=== PATIENT | male | born 1965 ===

== ENCOUNTER 2018-12-16 09:39 | Day surgery (SDC) | payer OTHER ==
[~2018-12-16] VITALS: Ht 177.8 cm; Wt 105.8 kg
[2018-12-16] MEDS ORDERED: LOSA50 (10:07)
== END 2018-12-16 11:28 | disposition home or self-care (01) ==
LOC: ORSCSDS 09:39
PROVIDERS: Internal Medicine Gastroenterology
PROC: 0DBP8ZX Excision of Rectum, Via Natural or Artificial Opening Endoscopic, Diagnostic (ICD-10-PCS; principal; 2018-12-16 11:00)
DX: Z12.11 Encounter for screening for malignant neoplasm of colon (principal); K62.1 Rectal polyp; K57.30 Diverticulosis of large intestine without perforation or abscess without bleeding; K64.8 Other hemorrhoids; I10 Essential (primary) hypertension; Z79.899 Other long term (current) drug therapy
CPT/HCPCS: 88305; J2704; J7120

== ENCOUNTER 2022-05-19 19:09 | Inpatient (IN) | payer BC ==
[~2022-05-19] VITALS: Ht 172.7 cm; Wt 110.0 kg
[~2022-05-19 19:09] MED LIST changes: -AMOCLA875 PO; -AMOX-CLAV ER 11 EAC1 PO
[2022-05-19 21:46] LABS: BASOPHILS ABSOLUTE AUTO 0.06 K/mm3 (0.00-0.23); BASOPHILS PERCENT AUTO 0 % (0-2); EOSINOPHILS ABSOLUTE AUTO 0.08 K/mm3 (0.00-0.68); EOSINOPHILS PERCENT AUTO 0 % (0-6); Hematocrit 44.2 % (37.0-53.0); Hemoglobin 15.1 g/dL (13.5-17.5); IMMATURE GRAN ABSOLUTE AUTO 0.14 K/mm3 (0.00-0.10); IMMATURE GRAN PERCENT AUTO 1 % (0-1); LYMPHOCYTES ABSOLUTE AUTO 2.09 K/mm3 (0.84-5.20); LYMPHOCYTES PERCENT AUTO 11 % (21-46); MONOCYTES PERCENT AUTO 6 % (4-13); Mean Corpuscular HGB 30.2 pg (26.0-34.0); Mean Corpuscular HGB Conc 34.2 g/dL (31.5-36.5); Mean Corpuscular Volume 88 fL (80-100); Mean Platelet Volume 9.8 fL (9.1-12.4); NEUTROPHILS ABSOLUTE AUTO 15.94 K/mm3 (1.96-9.15); NEUTROPHILS PERCENT AUTO 82 % (41-73); Platelet Count 221 K/mm3 (150-400); RDW Coefficient Variation 13.2 % (11.7-14.2); RDW Standard Deviation 42.7 fL (35.1-46.3); White Blood Cell Count 19.51 K/mm3 (4.00-11.30)
[2022-05-19 22:01] LABS: Albumin, Blood 3.3 g/dL (3.4-5.0); Albumin/Globulin Ratio 0.8 (0.8-1.8); Bilirubin, Total 1.8 mg/dL (0.1-1.0); Bun/Creatinine Ratio 17.7 (12.0-20.0); Calcium, Blood 8.7 mg/dL (8.5-10.1); Creatinine, Blood 0.85 mg/dL (0.60-1.20); Globulin, Blood 4.1 g/dL (2.2-4.0); Potassium, Blood 3.8 mmol/L (3.5-5.5); Total Protein, Blood 7.4 g/dL (6.4-8.2)
[2022-05-20 04:36] LABS: Hematocrit 41.8 % (37.0-53.0); Hemoglobin 14.5 g/dL (13.5-17.5); Mean Corpuscular HGB 30.4 pg (26.0-34.0); Mean Corpuscular HGB Conc 34.7 g/dL (31.5-36.5); Mean Corpuscular Volume 88 fL (80-100); Mean Platelet Volume 9.8 fL (9.1-12.4); Platelet Count 227 K/mm3 (150-400); RDW Standard Deviation 42.5 fL (35.1-46.3); Red Blood Cell Count 4.77 M/mm3 (4.30-5.90); White Blood Cell Count 17.93 K/mm3 (4.00-11.30)
[2022-05-20 04:56] LABS: Bun/Creatinine Ratio 21.2 (12.0-20.0); Calcium, Blood 8.6 mg/dL (8.5-10.1); Creatinine, Blood 0.8 mg/dL (0.60-1.20)
--- NOTE | 2022-05-20 06:56 | NUR ---
SUMMARY ADMIT THIS SHIFT FOR MICROPERF DIVERTIC,PT HAS SURG CX ORDERED.NPO AT THIS TIME.
--- NOTE | 2022-05-20 11:16 | NUR ---
DR VANCE IN TO SEE PT.
--- NOTE | 2022-05-20 17:01 | NUR ---
SUMMARY NO ACUTE CHANGES T/O SHIFT. PT ADVANCED TO CLEAR LIQUIDS TODAY, TOLERATING W/O DIFFICULTY. IV FLUIDS/ABX ADMINISTERED PER ORDERS. PT HAS NOT REQUIRED ANYTHING FOR NAUSEA OR PAIN THIS SHIFT. GETS UP INDEPENDENTLY TO USE RESTROOM. VOIDING TEA COLORED URINE. CALL LIGHT IN REACH.
[2022-05-21 04:55] LABS: BASOPHILS ABSOLUTE AUTO 0.04 K/mm3 (0.00-0.23); BASOPHILS PERCENT AUTO 0 % (0-2); EOSINOPHILS ABSOLUTE AUTO 0.16 K/mm3 (0.00-0.68); EOSINOPHILS PERCENT AUTO 1 % (0-6); Hematocrit 42.2 % (37.0-53.0); Hemoglobin 13.9 g/dL (13.5-17.5); IMMATURE GRAN ABSOLUTE AUTO 0.09 K/mm3 (0.00-0.10); IMMATURE GRAN PERCENT AUTO 1 % (0-1); LYMPHOCYTES ABSOLUTE AUTO 1.77 K/mm3 (0.84-5.20); LYMPHOCYTES PERCENT AUTO 16 % (21-46); MONOCYTES ABSOLUTE AUTO 0.78 K/mm3 (0.16-1.47); MONOCYTES PERCENT AUTO 7 % (4-13); Mean Corpuscular HGB 30.1 pg (26.0-34.0); Mean Corpuscular HGB Conc 32.9 g/dL (31.5-36.5); Mean Corpuscular Volume 91 fL (80-100); Mean Platelet Volume 9.6 fL (9.1-12.4); NEUTROPHILS ABSOLUTE AUTO 8.51 K/mm3 (1.96-9.15); NEUTROPHILS PERCENT AUTO 75 % (41-73); Platelet Count 256 K/mm3 (150-400); RDW Coefficient Variation 13.2 % (11.7-14.2); RDW Standard Deviation 44.4 fL (35.1-46.3); Red Blood Cell Count 4.62 M/mm3 (4.30-5.90); White Blood Cell Count 11.35 K/mm3 (4.00-11.30)
[2022-05-21 05:11] LABS: Calcium, Blood 8.7 mg/dL (8.5-10.1); Creatinine, Blood 0.93 mg/dL (0.60-1.20)
--- NOTE | 2022-05-21 05:24 | NUR ---
SHIFT SUMMARY' PT AOX4. AMBULATES INDEPENDENTLY IN ROOM. PT IS BEING TREATED FOR IV ABX. PAIN MANAGEMENT. TOLEARATING CLEAR LIQ DIET. PT REPORTS NO PAIN. DENIES NAUSEA AND VOMITING. IV ABX OVERNIGHT. IV FLUIDS INFUSING. CALL LIGHT WITHIN REACH. WILL PROVIDE REPORT TO ONCOMING NURSE.
--- NOTE | 2022-05-21 08:05 | NUR ---
A&OX4, DENIES ANY NAUSEA, REPORTS HAVING VERY MINIMAL ABD PAIN, REPORTS TOLERATING CLEAR LIQUIDS WELL, PT OK TO ADVANCE DIET KOFI PER DR. VANCE IF OK WITH SURGERY, MONITOR FOR ANY CHANGES.
[2022-05-21] MEDS ORDERED: AMOX-CLAV ER 11 EAC1 PO (13:12)
--- NOTE | 2022-05-21 14:13 | NUR ---
DC'D HOME, PT STATES TOLERATED LOW FIBER LUNCH WELL, DC INSTRUCTIONS GIVEN, VERBALIZED UNDERSTANDING.
== END 2022-05-21 13:35 | disposition home or self-care (01) | DRG 392 ==
LOC: ER 19:09 → SURS 19:10
PROVIDERS: Student in an Organized Health Care Education/Training Program; ADMIT Internal Medicine
DX: K57.20 Diverticulitis of large intestine with perforation and abscess without bleeding (principal); I10 Essential (primary) hypertension; E78.00 Pure hypercholesterolemia, unspecified; E66.9 Obesity, unspecified; Z79.899 Other long term (current) drug therapy; Z68.35 Body mass index [BMI] 35.0-35.9, adult; Z98.890 Other specified postprocedural states
CPT/HCPCS: 36415; 80048; 80053; 85025; 85027; 96361; 96365; 96366; 96375; 96376; 99284-25; A9270; G0378; J1650; J2405; J2543; J3010; J7030

== ENCOUNTER → 2022-05-19 | Outpatient (CLI) | payer SELFPAY ==
[~2022-05-19] MED LIST: AMOCLA875 PO; AMOX-CLAV ER 11 EAC1 PO; LOSA50
[2022-05-19 17:32] LABS: BASOPHILS ABSOLUTE AUTO 0.06 K/mm3 (0.00-0.23); BASOPHILS PERCENT AUTO 0 % (0-2); EOSINOPHILS ABSOLUTE AUTO 0.02 K/mm3 (0.00-0.68); EOSINOPHILS PERCENT AUTO 0 % (0-6); Hemoglobin 16.4 g/dL (13.5-17.5); IMMATURE GRAN ABSOLUTE AUTO 0.14 K/mm3 (0.00-0.10); IMMATURE GRAN PERCENT AUTO 1 % (0-1); LYMPHOCYTES ABSOLUTE AUTO 2.04 K/mm3 (0.84-5.20); LYMPHOCYTES PERCENT AUTO 9 % (21-46); MONOCYTES ABSOLUTE AUTO 1.38 K/mm3 (0.16-1.47); MONOCYTES PERCENT AUTO 6 % (4-13); Mean Corpuscular HGB 30.7 pg (26.0-34.0); Mean Corpuscular HGB Conc 34.9 g/dL (31.5-36.5); Mean Corpuscular Volume 88 fL (80-100); Mean Platelet Volume 9.5 fL (9.1-12.4); NEUTROPHILS ABSOLUTE AUTO 18.38 K/mm3 (1.96-9.15); NEUTROPHILS PERCENT AUTO 83 % (41-73); Platelet Count 245 K/mm3 (150-400); RDW Coefficient Variation 13.1 % (11.7-14.2); RDW Standard Deviation 42.2 fL (35.1-46.3); Red Blood Cell Count 5.35 M/mm3 (4.30-5.90); White Blood Cell Count 22.02 K/mm3 (4.00-11.30)
[2022-05-19 17:38] LABS: Bun/Creatinine Ratio 15.5 (12.0-20.0); Calcium, Blood 9.3 mg/dL (8.5-10.1); Creatinine, Blood 0.84 mg/dL (0.60-1.20); Potassium, Blood 3.5 mmol/L (3.5-5.5)
== END | disposition home or self-care (01) ==
LOC: LAB SHORT 17:27 → LAB 17:27
PROVIDERS: Physician Assistant Surgical
DX: R10.32 Left lower quadrant pain (principal)
CPT/HCPCS: 80048; 85025

== ENCOUNTER 2022-05-25 16:30 | Inpatient (IN) | payer BC ==
[~2022-05-25] VITALS: Ht 177.8 cm; Wt 104.3 kg
[~2022-05-25 16:30] MED LIST changes: +AMOX-CLAV ER 11 EAC1 PO
[2022-05-25 18:38] LABS: Mean Corpuscular HGB 29.8 pg (26.0-34.0); Mean Corpuscular HGB Conc 33.3 g/dL (31.5-36.5); Mean Corpuscular Volume 89 fL (80-100); Mean Platelet Volume 9.4 fL (9.1-12.4); Platelet Count 402 K/mm3 (150-400); RDW Coefficient Variation 12.7 % (11.7-14.2); RDW Standard Deviation 41.9 fL (35.1-46.3); Red Blood Cell Count 5.04 M/mm3 (4.30-5.90); White Blood Cell Count 23.64 K/mm3 (4.00-11.30)
[2022-05-25 18:46] LABS: Albumin, Blood 3.5 g/dL (3.4-5.0); Albumin/Globulin Ratio 0.8 (0.8-1.8); Bilirubin, Total 0.7 mg/dL (0.1-1.0); Bun/Creatinine Ratio 15.5 (12.0-20.0); Calcium, Blood 9.6 mg/dL (8.5-10.1); Creatinine, Blood 1.03 mg/dL (0.60-1.20); Globulin, Blood 4.4 g/dL (2.2-4.0); Potassium, Blood 3.7 mmol/L (3.5-5.5); Total Protein, Blood 7.9 g/dL (6.4-8.2)
[2022-05-25 19:10] LABS: BAND PERCENT MAN 2 % (0-8); BASOPHILS PERCENT MAN 0 % (0-2); EOSINOPHILS ABSOLUTE MAN 0.23 K/mm3 (0.00-0.68); EOSINOPHILS PERCENT MAN 1 % (0-6); LYMPHOCYTES ABSOLUTE MAN 1.65 K/mm3 (0.84-5.20); LYMPHOCYTES PERCENT MAN 7 % (21-46); MONOCYTES ABSOLUTE MAN 1.18 K/mm3 (0.16-1.47); MONOCYTES PERCENT MAN 5 % (4-13); NEUTROPHILS ABSOLUTE MAN 20.56 K/mm3 (1.96-9.15); SEG NEUTROPHILS PERCENT MAN 85 % (41-73); TOTAL CELLS COUNTED 100
[2022-05-25 19:22] LABS: Source, Urine Clean Catch
[2022-05-25 19:40] LABS: Appearance, Urine Clear (Clear); Bilirubin, Urine Neg (Neg); Blood, Urine 2+ (Neg); Color, Urine Amber (P-Yellow); Glucose Qualitative, Urine Neg (Neg); Ketones, Urine 4+ (Neg); Leukocyte Esterase, Urine 1+ (Neg); Nitrite, Urine Neg (Neg); Protein, Urine 2+ (Neg); Urobilinogen, Urine NORM (Normal)
[2022-05-25 20:12] LABS: Bacteria Rare /hpf; Calcium Oxalate Crystals Few /hpf; Red Blood Cells, Urine 0-2 /hpf (0-2); Squamous Epithelial Cells Rare /hpf (Few); White Blood Cells, Urine 0-2 /hpf (0-5)
[2022-05-26 05:01] LABS: BASOPHILS ABSOLUTE AUTO 0.09 K/mm3 (0.00-0.23); BASOPHILS PERCENT AUTO 1 % (0-2); EOSINOPHILS ABSOLUTE AUTO 0.21 K/mm3 (0.00-0.68); EOSINOPHILS PERCENT AUTO 1 % (0-6); Hematocrit 39.9 % (37.0-53.0); Hemoglobin 13.6 g/dL (13.5-17.5); IMMATURE GRAN ABSOLUTE AUTO 0.23 K/mm3 (0.00-0.10); IMMATURE GRAN PERCENT AUTO 1 % (0-1); LYMPHOCYTES ABSOLUTE AUTO 1.48 K/mm3 (0.84-5.20); LYMPHOCYTES PERCENT AUTO 8 % (21-46); MONOCYTES ABSOLUTE AUTO 1.66 K/mm3 (0.16-1.47); MONOCYTES PERCENT AUTO 9 % (4-13); Mean Corpuscular HGB 30.2 pg (26.0-34.0); Mean Corpuscular HGB Conc 34.1 g/dL (31.5-36.5); Mean Corpuscular Volume 89 fL (80-100); Mean Platelet Volume 9.2 fL (9.1-12.4); NEUTROPHILS ABSOLUTE AUTO 15.69 K/mm3 (1.96-9.15); NEUTROPHILS PERCENT AUTO 81 % (41-73); Platelet Count 324 K/mm3 (150-400); RDW Coefficient Variation 12.8 % (11.7-14.2); RDW Standard Deviation 41.9 fL (35.1-46.3); White Blood Cell Count 19.36 K/mm3 (4.00-11.30)
--- NOTE | 2022-05-26 05:24 | NUR ---
SHIFT SUMMARY PT A&OX4, PLEASANT AND COOPERATIVE. NO ACUTE CHANGES DURING SHIFT, VSS. PT DID NOT NEED PAIN COVERAGE THIS SHIFT. SBA TO BSC. PT CONTINUES TO HAVE NOT MUCH OF AN APPETITE. TELE IS SINUS WITH A FEW PVC'S. OSTOMY OUTPUT GREEN/LIQUIDY. MIDLINE INCISION DRESSING C/D/I. ESTRADA DRAINING TO GRAVITY, YELLOW/CLEAR. CALLS APPROPRIATELY, CALL LIGHT WITHIN REACH.
[2022-05-26 05:35] LABS: Albumin, Blood 2.7 g/dL (3.4-5.0); Albumin/Globulin Ratio 0.7 (0.8-1.8); Bilirubin, Total 0.9 mg/dL (0.1-1.0); Bun/Creatinine Ratio 15.1 (12.0-20.0); Calcium, Blood 8.9 mg/dL (8.5-10.1); Creatinine, Blood 0.86 mg/dL (0.60-1.20); Total Protein, Blood 6.7 g/dL (6.4-8.2)
--- NOTE | 2022-05-26 18:42 | NUR ---
SHIFT SUMMARY PT BROUGHT IN FOR ABSCESS RELATED TO DIVERTIC. PT NON-SURGICAL AT THIS TIME AND TREATED WITH IV ABX. IND IN ROOM AND HAVING INTERMITTENT LOOSE STOOLS. STARTED ON FULL LIQUID DIET. PT TREATED FOR FEVER PER EMR.
--- NOTE | 2022-05-27 05:17 | NUR ---
SHIFT SUMMARY PT A&OX4, PLEASANT AND COOPERATIVE. NO ACUTE CHANGES, VSS. PT DID NOT NEED PAIN COVERAGE THIS SHIFT. INDEPENDENT IN ROOM. CONTINUED ORDERED ABX. TOLERATING FULL LIQUID DIET WITHOUT N/V. CALLS APPROPRIATELY, CALL LIGHT WITHIN REACH.
--- NOTE | 2022-05-27 17:05 | NUR ---
SHIFT SUMMARY PT HAS DONE WELL T/O SHIFT. AFEBRILE WITH ORAL TEMPS. PT HAS HAD NO C/O PAIN. TOLERATING FULL LIQUID WITH NO N/V. SALINE LOCKED WHEN NOT RECIEVING IV ABX. INDEPENDENT IN ROOM TO BATHROOM AND ENCOURAGED TO WALK IN HALLWAY TOLERATED.
--- NOTE | 2022-05-28 04:11 | NUR ---
VSS. THE PT SLEPT WELL T/O THE NIGHT. WALKING TO THE BATHROOM TO VOID, PASS STOOL, AND FLATTUS. NO ACUTE EVENTS T/O THE NIGHT. THE PT DID NOT C/O PAIN. TOLLERATING PO INTAKE W/O N/V. PLAN OF CARE IS FOR PT TO CONTINUE IV ANTIBIOTICS.
[2022-05-28 04:40] LABS: BASOPHILS ABSOLUTE AUTO 0.08 K/mm3 (0.00-0.23); BASOPHILS PERCENT AUTO 1 % (0-2); EOSINOPHILS PERCENT AUTO 3 % (0-6); Hemoglobin 12.6 g/dL (13.5-17.5); IMMATURE GRAN ABSOLUTE AUTO 0.28 K/mm3 (0.00-0.10); IMMATURE GRAN PERCENT AUTO 2 % (0-1); LYMPHOCYTES ABSOLUTE AUTO 1.88 K/mm3 (0.84-5.20); LYMPHOCYTES PERCENT AUTO 16 % (21-46); MONOCYTES ABSOLUTE AUTO 0.76 K/mm3 (0.16-1.47); MONOCYTES PERCENT AUTO 7 % (4-13); Mean Corpuscular HGB 29.8 pg (26.0-34.0); Mean Corpuscular HGB Conc 33.2 g/dL (31.5-36.5); Mean Corpuscular Volume 90 fL (80-100); Mean Platelet Volume 9.3 fL (9.1-12.4); NEUTROPHILS ABSOLUTE AUTO 8.17 K/mm3 (1.96-9.15); NEUTROPHILS PERCENT AUTO 71 % (41-73); Platelet Count 386 K/mm3 (150-400); RDW Coefficient Variation 12.7 % (11.7-14.2); RDW Standard Deviation 41.8 fL (35.1-46.3); Red Blood Cell Count 4.23 M/mm3 (4.30-5.90); White Blood Cell Count 11.47 K/mm3 (4.00-11.30)
--- NOTE | 2022-05-28 19:28 | NUR ---
SHIFT SUMMARY PT HAS DONE WELL T/O SHIFT. NO C/O PAIN OR N/V. ADVANCED DIET TO LOW RESIDUE DIET, TOLERATING WELL. PLAN FOR REPEAT ABD CT IN AM. CONTINUE IV ABX.
--- NOTE | 2022-05-29 03:58 | NUR ---
VSS. PT SLEPT WELL T/O THE NIGHT. NO ACUTE EVENTS NOTED. PT DID NOT REQUIRE PAIN MANAGEMENT TONIGHT. TOLLERATING PO INTAKE. VOIDING, PASSING GAS, AND STOOL W/O DIFFICULTY. PLAN FOR THE PATIENT TO HAVE A CT TODAY AND POTENTIALLY D/C HOME.
[2022-05-29 04:36] LABS: BASOPHILS ABSOLUTE AUTO 0.11 K/mm3 (0.00-0.23); BASOPHILS PERCENT AUTO 1 % (0-2); EOSINOPHILS ABSOLUTE AUTO 0.37 K/mm3 (0.00-0.68); EOSINOPHILS PERCENT AUTO 4 % (0-6); Hematocrit 40.5 % (37.0-53.0); Hemoglobin 13.3 g/dL (13.5-17.5); IMMATURE GRAN ABSOLUTE AUTO 0.24 K/mm3 (0.00-0.10); IMMATURE GRAN PERCENT AUTO 2 % (0-1); LYMPHOCYTES ABSOLUTE AUTO 1.89 K/mm3 (0.84-5.20); LYMPHOCYTES PERCENT AUTO 18 % (21-46); MONOCYTES ABSOLUTE AUTO 0.58 K/mm3 (0.16-1.47); MONOCYTES PERCENT AUTO 6 % (4-13); Mean Corpuscular HGB 29.7 pg (26.0-34.0); Mean Corpuscular HGB Conc 32.8 g/dL (31.5-36.5); Mean Corpuscular Volume 90 fL (80-100); Mean Platelet Volume 9.2 fL (9.1-12.4); NEUTROPHILS ABSOLUTE AUTO 7.19 K/mm3 (1.96-9.15); NEUTROPHILS PERCENT AUTO 69 % (41-73); Platelet Count 428 K/mm3 (150-400); RDW Coefficient Variation 12.6 % (11.7-14.2); RDW Standard Deviation 41.9 fL (35.1-46.3); Red Blood Cell Count 4.48 M/mm3 (4.30-5.90); White Blood Cell Count 10.38 K/mm3 (4.00-11.30)
[2022-05-29 04:54] LABS: Albumin, Blood 2.5 g/dL (3.4-5.0); Albumin/Globulin Ratio 0.6 (0.8-1.8); Bilirubin, Total 0.4 mg/dL (0.1-1.0); Bun/Creatinine Ratio 13.3 (12.0-20.0); Calcium, Blood 8.6 mg/dL (8.5-10.1); Creatinine, Blood 0.9 mg/dL (0.60-1.20); Potassium, Blood 3.9 mmol/L (3.5-5.5); Total Protein, Blood 6.5 g/dL (6.4-8.2)
[2022-05-29] MEDS ORDERED: AMOCLA875 PO (14:26)
--- NOTE | 2022-05-29 14:52 | NUR ---
discharging DC'D IV, CATHETER INTACT. REVIEWED DC INSTRUCTIONS, PT VERBALIZED UNDERSTANDING. PT GETTING DRESSED. WOULD LIKE TO LEAVE BY AMBULATION, DECLINED OFFER OF WC.
--- NOTE | 2022-05-29 15:11 | NUR ---
PT WAITING FOR SPOUSE TO BRING IN CLOTHES.
--- NOTE | 2022-05-29 15:32 | NUR ---
discharged PT LEFT UNIT BY AMBULATION ACCOMPANIED BY SPOUSE W/DC PAPERWORK AND POSSESSIONS IN HAND.
== END 2022-05-29 15:25 | disposition home or self-care (01) | DRG 392 ==
LOC: ER 16:30 → SURS 20:24
PROVIDERS: Internal Medicine; Physician Assistant; Surgery; ADMIT Internal Medicine
DX: K57.20 Diverticulitis of large intestine with perforation and abscess without bleeding (principal); I10 Essential (primary) hypertension; E78.5 Hyperlipidemia, unspecified; E66.9 Obesity, unspecified; Z90.89 Acquired absence of other organs; Z79.899 Other long term (current) drug therapy; Z68.33 Body mass index [BMI] 33.0-33.9, adult
CPT/HCPCS: 36415; 74177; 80053; 81001; 83690; 85025; 87086; 96365-59; 99285-25; A9270; J2543; J7030; J7050; J7120; Q9967